=== PATIENT | female | born 1985 | race Caucasian/White ===

== ENCOUNTER 2016-04-02 07:04 | Inpatient (IN) | payer OTHER ==
[2016-04-02] VITALS (49 sets, daily range): BP systolic 112–144; BP diastolic 60–92; PULSE 71–115; TEMP 98.2–99.5
[~2016-04-02] VITALS: Ht 165.1 cm; Wt 101.5 kg
[2016-04-02] MEDS ORDERED: PRENATAL1 TA7 PO (07:44)
[2016-04-02] MEDS ORDERED: FERROUS SULFATE65 MG PO (07:46)
[2016-04-02] MEDS ORDERED: PROCARDIA XL 3030 MG PO (07:47)
[2016-04-02 07:53] LABS: BASO % 0.2 % (0.0-2.0); EOS # 0.1 (0.0-0.7); EOS % 1.2 % (0-4.0); GRAN # 7.1 (1.4-6.5); GRAN % 72.9 % (42.2-75.2); HEMATOCRIT 38.9 % (37.0-47.0); HEMOGLOBIN 12.8 g/dl (12.5-16.0); LYMPH # 1.9 (1.2-3.4); LYMPH % 19.1 % (20.0-51.0); MEAN CELL VOLUME 82 fl (80.0-100.0); MEAN CORPUSCULAR HEMOGLOBIN 27 pg (27.0-31.0); MEAN CORPUSCULAR HGB CONC 33 g/dl (33.0-37.0); MEAN PLATELET VOLUME 10.7 fl (7.4-10.4); MONO # 0.6 (0.1-0.6); PLATELET COUNT 229 K/mm3 (130-400); RED BLOOD COUNT 4.77 M/mm3 (4.10-5.30); REDCELL DISTRIBUTION WIDTH-CV 16.3 % (11.5-14.5); WHITE BLOOD COUNT 9.8 K/mm3 (4.8-10.8)
[2016-04-03 01:00] VITALS: BP 124/66; PULSE 78; TEMP 98.7
[2016-04-03 15:58] VITALS: BP 121/72; PULSE 92; TEMP 98.3
[2016-04-03 21:15] VITALS: BP 128/64; PULSE 95; TEMP 98.3
[2016-04-04 08:20] VITALS: BP 129/68; PULSE 71; TEMP 97.6
[2016-04-04] MEDS ORDERED: IBU800 M1 PO (08:29)
== END 2016-04-04 11:20 | disposition home or self-care (01) | DRG 774 ==
LOC: OB 07:04 → LDR 07:04 → OB 21:15
PROVIDERS: Obstetrics & Gynecology
PROC: 10E0XZZ Delivery of Products of Conception, External Approach (ICD-10-PCS; principal; 2016-04-02)
PROC: 3E033VJ Introduction of Other Hormone into Peripheral Vein, Percutaneous Approach (ICD-10-PCS; 2016-04-02)
PROC: 0HQ9XZZ Repair Perineum Skin, External Approach (ICD-10-PCS; 2016-04-02)
DX: O48.0 Post-term pregnancy (principal); O10.02 Pre-existing essential hypertension complicating childbirth; O70.0 First degree perineal laceration during delivery; Z3A.40 40 weeks gestation of pregnancy; Z37.0 Single live birth
CPT/HCPCS: J2590; J2795; J7120

== ENCOUNTER 2017-02-18 15:49 | Inpatient (IN) | payer OTHER, BC ==
[~2017-02-18] VITALS: Ht 162.6 cm; Wt 109.1 kg
[~2017-02-18 15:49] MED LIST: FERROUS SULFATE65 MG PO; IBU800 M1 PO; PRENATAL1 TA7 PO; PROCARDIA XL 3030 MG PO
[2017-03-21] VITALS (33 sets, daily range): BP systolic 114–143; BP diastolic 51–87; PULSE 78–101; TEMP 98–98.2
[2017-03-21 08:59] LABS: BASO % 0.4 % (0.0-2.0); EOS % 0.1 % (0-4.0); GRAN # 6.9 (1.4-6.5); GRAN % 86.3 % (42.2-75.2); HEMATOCRIT 40.3 % (37.0-47.0); HEMOGLOBIN 12.9 g/dl (12.5-16.0); LYMPH # 0.5 (1.2-3.4); LYMPH % 6.4 % (20.0-51.0); MEAN CELL VOLUME 80 fl (80.0-100.0); MEAN CORPUSCULAR HEMOGLOBIN 26 pg (27.0-31.0); MEAN CORPUSCULAR HGB CONC 32 g/dl (33.0-37.0); MEAN PLATELET VOLUME 10.4 fl (7.4-10.4); MONO # 0.5 (0.1-0.6); MONO % 5.9 % (1.7-9.3); PLATELET COUNT 252 K/mm3 (130-400); RED BLOOD COUNT 5.02 M/mm3 (4.10-5.30)
[2017-03-22 00:19] VITALS: BP 118/61; PULSE 79; TEMP 97.4
[2017-03-22 04:45] VITALS: BP 121/62; PULSE 69; TEMP 97.3
[2017-03-22 08:45] VITALS: BP 127/73; PULSE 77; TEMP 97.5
[2017-03-22] MEDS ORDERED: IBU800 M1 PO (08:55)
== END 2017-03-22 16:00 | disposition home or self-care (01) | DRG 775 ==
LOC: LDR 03-21 06:52 → OB 03-21 14:39 → LDR 03-28 15:48
PROVIDERS: Obstetrics & Gynecology
PROC: 10E0XZZ Delivery of Products of Conception, External Approach (ICD-10-PCS; principal; 2017-03-21)
PROC: 0HQ9XZZ Repair Perineum Skin, External Approach (ICD-10-PCS; 2017-03-21)
DX: O69.81X0 Labor and delivery complicated by cord around neck, without compression, not applicable or unspecified (principal); O70.0 First degree perineal laceration during delivery; Z3A.39 39 weeks gestation of pregnancy; Z37.0 Single live birth
CPT/HCPCS: J2590; J2795; J7120